=== PATIENT | male | born 2000 | race Caucasian/White ===

== ENCOUNTER 2020-11-06 16:21 | Emergency (ER) | payer OTHER ==
[2020-11-06 17:33] LABS: BASOPHIL 0.3 % (0-2); BILIRUBIN NEGATIVE (NEGATIVE); BLOOD TRACE-INTACT Ery/uL (NEGATIVE); CLARITY CLEAR (CLEAR); COLOR YELLOW (YELLOW); EOSINOPHIL 1.5 % (0-5); GLUCOSE (U) NORMAL (NORMAL); HCT 45.9 % (42.0-52.0); HGB 15.3 g/dl (13.2-18.0); LEUKOCYTES NEGATIVE Leu/uL (NEGATIVE); LYMPHOCYTE 18.3 % (15-48); MCH 29.6 pg (25.0-31.0); MCHC 33.3 g/dL (32.0-36.0); MCV 88.8 fL (78.0-100.0); MONOCYTE 5.7 % (0-12); MPV 10.1 fL (6.0-9.5); NEUTROPHIL 73.8 % (41-80); NITRITE NEGATIVE (NEGATIVE); NRBC 0; PLT 216 K/uL (150-400); PROTEIN NEGATIVE (NEGATIVE); RBC 5.17 M/uL (4.70-6.00); RDW 13.7 % (11.5-14.0); SPECIFIC GRAVITY >=1.030 (1.001-1.030); UROBILINOGEN 0.2 mg/dL (0.2-1.0); WBC 16.5 K/uL (4.0-10.5); pH 5.5 (5.0-9.0)
[2020-11-06 17:47] LABS: MUCOUS TRACE; URINARY RBC RARE
[2020-11-06 17:48] LABS: ALBUMIN 4.1 g/dL (3.4-5.0); BILIRUBIN - TOTAL 0.3 mg/dL (0.2-1.0); BUN/CREAT RATIO (CALC) 11.7 RATIO; CREATININE 0.94 mg/dL (0.67-1.17); GLOBULIN (CALCULATION) 3.6 g/dL; POTASSIUM 3.9 mmol/L (3.5-5.1); TOTAL PROTEIN 7.7 g/dL (6.4-8.2)
== END 2020-11-06 19:30 | disposition home or self-care (01) ==
LOC: FER 16:21
PROVIDERS: Nurse Practitioner Family
DX: R10.9 Unspecified abdominal pain (principal)
CPT/HCPCS: 36415; 80053; 81001; 83605; 85025; J7030; Q9967